=== PATIENT | male | born 1975 | race Caucasian/White ===

== ENCOUNTER 2022-01-24 16:28 | Outpatient (REF) | payer SELFPAY ==
[2022-01-24 16:30] VITALS: BP 123/89; PULSE 71; RESP 15; TEMP 36.2; O2SAT 98; BMI 26.6
--- NOTE | 2022-01-24 17:59 | EDS_ITS ---
HPI History of Present Illness Chief Complaint: Eye Problem Informant: patient Onset/Context/Timing Onset: Yesterday Context: Sudden Onset Timing: Continuous Current Severity: Mild Maximum Severity: Mild Worsened by: Nothing Relieved by: nothing Associated Symptoms Associated Symptoms - Eyes: - (Decreased vision superior third of the visual field); Negative for Burning, Crusting, Drainage, Eyelid swelling, Foreign body sensation, Itching, Matting, Pain, Photophobia or Redness Visual Changes: right: Blurred vision and Visual field cut History of injury: No Visual correction: None Narrative Narrative: Patient is a 46-year-old male with history of traumatic cataract requiring lens implant. Lens implant was reportedly complicated by retinal detachment. Has had 3 prior retinal detachments. His retinal specialist is located main [facility] at the [facility]. 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 He denies fever, chills night sweats. Denies history of diabetes or glaucoma. Prior similar symptoms: Yes Recent Illness/Hospitalization: No PFSH PFSH Medical History no medical history no medical history (Retinal detachment x3) Home Medications NK 01/24/22 [History Last Taken Unknown] Allergy/AdvReac Type Severity Reaction Status Date / Time No Known Allergies Allergy Verified 01/24/22 16:31 Surgical History no surgical history no surgical history (Traumatic cataract requiring lens implant) Social History (Updated 01/24/22 @ 18:[address] Thaddeus Nieto MD) household members: none housing: other details: Incarcerated Smoking Status: Never smoker substance use type: does not use ROS ROS ED Constitutional Constitutional ED: Denies chills, fever(s), subjective, sweats or weight loss Eyes Eyes: Reports blurry vision right and change in vision right; Denies diplopia ENT ENT ED: Denies ear pain, rhinorrhea or sore throat Cardiovascular Cardiovascular: Denies chest pain, palpitations or racing heartbeat Gastrointestinal Gastrointestinal: Denies nausea or vomiting Hematologic/Lymphatic Hematologic/Lymphatic: Denies easy bleeding or easy bruising EXAM Physical Exam Const Vital Signs: 01/24/22 16:30 Temperature 97.1 F L Temperature Source Oral Pulse Rate 71 Respiratory Rate 15 Blood Pressure 123/89 H Blood Pressure Mean 100 Pulse Ox 98 Oxygen Delivery Method Room Air Positive well nourished and well developed General Appearance ED: well developed and NAD HEENT HEENT Narrative: Atraumatic normocephalic. Ears normal. Nares patent. Teeth normal. Posterior pharynx normal. Eyes Eyes Narrative: Patient has an asymmetric pupil. There is evidence of surgery on the right. The lens appears to be possibly slightly dislodged. Funduscopic exam reveals no papilledema. On direct visualization there is no obvious retinal tear or hemorrhage noted. He will need an indirect visual exam. Neck no lymphadenopathy, supple and no JVD Resp normal respiratory effort Cardio regular rate and regular rhythm Neuro oriented x3, CN's II-XII intact bilaterally, moves all extremities and no sensory deficits noted Sensorium / Orientation: alert Motor Exam: strength 5/5 throughout Psych Psych Narrative: Mood and factor normal Skin Lesions: no lesions Rashes: no rashes MDM MDM MDM Narrative Medical decision making narrative: His history is concerning for retinal tear. He is unable to see the chart right eye. Spoke with Dr. Leal who is on-call for ophthalmology. He will see the patient tomorrow. Depending on what is the cause of his visual disturbance he will make appropriate follow-up and treatment. The was given his cell phone number to call in the morning for Mr. Bhardwaj to be seen tomorrow morning. Discharge Plan Triage Chief Complaint: Eye Problem ED Provider: Thaddeus Nieot Dx/Rx/DC Orders Clinical Impression: Blurring of visual image of right eye, Dislocation of lens implant Prescriptions: No Action NK Primary Care Provider: NOT,DEFINED Referrals: Bo Leal MD [Med Staff - Active Staff] - As soon as possible NOT,DEFINED [Primary Care Provider] - Activity Restrictions/Additional Instructions: , , and he will see you at his office and determine what needs to be done tomorrow morning call Dr. Leal's cell phone Disposition Disposition: Home, Self Care
== END 2022-01-24 18:13 ==
LOC: ED 16:28
PROVIDERS: Visit Provider Emergency Medicine

== ENCOUNTER → 2024-02-23 | Outpatient (CLI) | payer MEDICAID, SELFPAY ==
--- NOTE | 2024-02-23 07:58 | MRI_ITS ---
HISTORY: pain, mechanical symptoms, twisting injury. TECHNIQUE: Multiplanar and multisequence MR images of the LEFT knee were obtained without contrast. 205 images. COMPARISON: XR 01/01/2024. FINDINGS: BONE MARROW: No acute fracture or other significant bone marrow signal abnormality. Small bone islands in the distal femur and proximal tibia. JOINT SPACES: Trace joint fluid. MENISCI: Medial and lateral menisci unremarkable in signal and morphology. TENDONS: Intact quadriceps and patellar tendon mechanism. LIGAMENTS: No tear of the anterior cruciate, posterior cruciate, medial collateral, lateral collateral ligaments. CARTILAGE: Very mild medial compartment chondral thinning. OTHER SOFT TISSUES: 1.5 x 1.8 cm cyst at the posterior medial aspect of the knee. 1.8 cm long popliteal cyst. MRI/Lower Ext Joint Only (Routine) IMPRESSION: No evidence of acute injury in the left knee. Small posteromedial cysts. Electronically Signed: Mary Kate Anderson MD at 15:02 EST ,
== END | disposition home or self-care (01) ==
PROVIDERS: Referring Provider Orthopaedic Surgery Sports Medicine; Visit Provider Orthopaedic Surgery Sports Medicine
DX: S86.912A Strain of unspecified muscle(s) and tendon(s) at lower leg level, left leg, initial encounter (principal); X50.1XXA Overexertion from prolonged static or awkward postures, initial encounter; M17.12 Unilateral primary osteoarthritis, left knee
CPT/HCPCS: 73721